=== PATIENT | male | born 1980 | race Caucasian/White ===

== ENCOUNTER 2025-01-03 18:15 | Emergency (ER) | payer MEDICAID ==
[~2025-01-03] VITALS: Ht 170.2 cm; Wt 82.0 kg
[2025-01-03 18:39] VITALS: TEMP 98.7
[2025-01-03 21:29] LABS: PLATELET COUNT (AUTO) 211 K/uL (150-450); RED BLOOD CELL COUNT(AUTO) 4.34 MIL/uL (4.50-5.90); RED CELL DISTRIBUTION WIDTH 14.3 % (11.5-14.5); WHITE BLOOD COUNT (AUTO) 11.8 K/uL (4.5-11.0)
[2025-01-03 21:38] LABS: CALCIUM, TOTAL 8.8 mg/dL (8.8-10.5); CREATININE 0.82 mg/dL (0.60-1.30); GLOMERULAR FILTR. RATE CALC > 60 mL/min (>60); GLUCOSE,RANDOM 153 mg/dL (70-110); SODIUM SERUM 140 mmol/L (136-145); UREA NITROGEN, BLOOD 10 mg/dL (7-18)
[2025-01-03 21:42] LABS: ASPARTATE AMINOTRANSFERASE 15.0 U/L (15-37); TOTAL PROTEIN, SERUM 6.7 g/dL (6.4-8.2)
[2025-01-03 22:16] LABS: APPEARANCE,URINE CLEAR (CLEAR); GLUCOSE, URINE (UA) NEGATIVE (NEGATIVE); LEUKOCYTE ESTERASE ,URINE NEGATIVE (NEGATIVE); NITRATE,URINE NEGATIVE (NEGATIVE); OCCULT BLOOD,URINE NEGATIVE (NEGATIVE); SPECIFIC GRAVITIY, URINE 1.012 (1.003-1.030)
[2025-01-03] MEDS: FAMOTIDINE 20 MG/2 ML VIAL IVP ONE (22:27)
[2025-01-03] MEDS: SODIUM CHLORIDE 0.9% 1,000 ML IV ONE (22:27)
[2025-01-04 01:00] VITALS: BP 123/85; PULSE 85; RESP 17; O2SAT 99
== END 2025-01-04 02:08 | disposition short-term general hospital (02) ==
LOC: EMS 18:15
DX: K59.00 Constipation, unspecified (principal); R10.11 Right upper quadrant pain; F32.A Depression, unspecified
CPT/HCPCS: 99285; 96374; 76705; 96361; 80048; 80076; 81003; 85025; 36415; 74018; J3490; J7030